=== PATIENT | male | born 1960 | race Caucasian/White ===

== ENCOUNTER 2017-07-12 09:49 | Inpatient (IN) | payer MEDICAID ==
[2017-07-12 12:47] LABS: ADD MAN DIFF? NO
[2017-07-12 12:50] LABS: BASOPHILS % 0.4 % (0.0-2.0); EOSINOPHILS # 0.2 10^3/ul (0.0-0.5); EOSINOPHILS % 3.2 % (0.0-7.0); HEMATOCRIT 35.7 % (42.0-52.0); HEMOGLOBIN 12.2 g/dl (14.0-18.0); LYMPHOCYTES # 1.8 10^3/ul (0.8-2.9); LYMPHOCYTES % 24.7 % (15.0-51.0); MEAN CORPUSCULAR HEMOGLOBIN 30.2 pg (29.0-33.0); MEAN CORPUSCULAR HGB CONC 34.2 g/dl (32.0-37.0); MEAN CORPUSCULAR VOLUME 88.4 fl (82.0-101.0); MEAN PLATELET VOLUME 10.5 fl (7.4-10.4); MONOCYTE # 0.4 10^3/ul (0.3-0.9); MONOCYTES % 6.2 % (0.0-11.0); NEUTROPHIL # 4.6 10^3/ul (1.6-7.5); NEUTROPHILS % 65.2 % (39.0-77.0); PLATELET COUNT 210 10^3/UL (140-415); RED BLOOD COUNT 4.04 10^6/ul (4.70-6.10); RED CELL DISTRIBUTION WIDTH 13.9 % (11.5-14.5)
[2017-07-12 12:50] LABS: WHITE BLOOD COUNT 7.1 10^3/ul (4.8-10.8)
[2017-07-12 13:10] LABS: ADD UMIC YES; UR ASCORBIC ACID NEGATIVE (NEGATIVE); UR BILIRUBIN (Dip) NEGATIVE (NEGATIVE); UR BLOOD (Dip) NEGATIVE (NEGATIVE); UR CLARITY CLEAR (CLEAR); UR COLOR YELLOW (YELLOW); UR GLUCOSE (Dip) NEGATIVE (NEGATIVE); UR KETONES (Dip) NEGATIVE (NEGATIVE); UR LEUKOCYTE ESTERASE (Dip) NEGATIVE Leu/ul (NEGATIVE); UR NITRITE (Dip) NEGATIVE (NEGATIVE); UR RBC 1 /HPF (0-5); UR SPECIFIC GRAVITY (Dip) 1.014 (1.003-1.030); UR TOTAL PROTEIN (Dip) 1+ mg/dl (NEGATIVE); UR UROBILINOGEN (Dip) NEGATIVE (NEGATIVE); UR WBC 1 /HPF (0-5)
[2017-07-12] MEDS: SOD CHLORIDE 0.9% 1,000 ML IV ×2 (13:11→16:19)
[2017-07-12 13:16] LABS: ALANINE AMINOTRANSFERASE 23 IU/L (13-69); ALBUMIN 4.6 g/dl (3.3-4.9); ALBUMIN/GLOBULIN RATIO 1.48; ALKALINE PHOSPHATASE 67 IU/L (42-121); AMYLASE 74 U/L (11-123); ANION GAP 19 (8-16); ASPARTATE AMINO TRANSFERASE 18 IU/L (15-46); BILIRUBIN,INDIRECT 0.4 mg/dl (0-1.1); BILIRUBIN,TOTAL 0.4 mg/dl (0.2-1.3); BLOOD UREA NITROGEN 25 mg/dl (7-20); CALCIUM 9.5 mg/dl (8.4-10.2); CARBON DIOXIDE 26 mmol/L (21-31); CHLORIDE 104 mmol/L (97-110); CREATININE 1.82 mg/dl (0.61-1.24); GLUCOSE 152 mg/dl (70-220); LIPASE 109 U/L (23-300); POTASSIUM 4.2 mmol/L (3.5-5.1); SODIUM 145 mmol/L (135-144); TOTAL PROTEIN 7.7 g/dl (6.1-8.1)
[2017-07-12 13:22] LABS: INR 1.01; PARTIAL THROMBOPLASTIN TIME 28.8 Sec (25.0-35.0); PROTIME 13.4 Sec (11.9-14.9)
[2017-07-12 13:33] LABS: TROPONIN-I < 0.012 ng/ml (0.00-0.12)
[2017-07-12] MEDS ORDERED: ONDANSETRON 4 MG INJ IV ×2 (18:00→18:30)
[2017-07-12] MEDS ORDERED: ACETAMINOPHEN 325 MG TAB PO ×2 (18:00→18:30)
[2017-07-12] MEDS: ASPIRIN (EC) 81 MG TAB PO (18:13)
[2017-07-12] MEDS ORDERED: DEXTROSE 50% 50 ML SYRINGE IV ×2 (18:30)
[2017-07-12] MEDS ORDERED: DOCUSATE SODIUM 100 MG CAP PO (18:30)
[2017-07-12] MEDS ORDERED: ZOLPIDEM 5 MG TAB PO (18:30)
[2017-07-12] MEDS ORDERED: GLUCOSE GEL 15 GRAM TUBE PO ×2 (18:30)
[2017-07-12] MEDS ORDERED: SILDENAFIL 25 MG TAB PO (18:30)
[2017-07-12] MEDS ORDERED: GLUCAGON 1 MG INJ IM (18:30)
[2017-07-12] MEDS ORDERED: NACL 0.9% 3 ML SYG IV (18:30)
[2017-07-12] MEDS ORDERED: morphine 2 MG INJ IV (18:30)
[2017-07-12] MEDS ORDERED: GLUCOSE GEL 15 GRAM TUBE BUCCAL (18:30)
[2017-07-12] MEDS: INSULIN ASPART [NOVOLOG] 3 ML PEN SC (20:46)
[2017-07-13] MEDS: ACCU-CHEK XX (02:00)
[2017-07-13 06:33] LABS: ADD MAN DIFF? NO
[2017-07-13 06:47] LABS: WHITE BLOOD COUNT 6.4 10^3/ul (4.8-10.8)
[2017-07-13 06:47] LABS: BASOPHIL # 0.1 10^3/ul (0.0-0.1); BASOPHILS % 0.9 % (0.0-2.0); EOSINOPHILS # 0.3 10^3/ul (0.0-0.5); HEMATOCRIT 32.3 % (42.0-52.0); LYMPHOCYTES # 1.6 10^3/ul (0.8-2.9); LYMPHOCYTES % 24.3 % (15.0-51.0); MEAN CORPUSCULAR HEMOGLOBIN 30.1 pg (29.0-33.0); MEAN CORPUSCULAR HGB CONC 34.1 g/dl (32.0-37.0); MEAN CORPUSCULAR VOLUME 88.3 fl (82.0-101.0); MEAN PLATELET VOLUME 10.6 fl (7.4-10.4); MONOCYTE # 0.5 10^3/ul (0.3-0.9); MONOCYTES % 8.1 % (0.0-11.0); NEUTROPHILS % 62.4 % (39.0-77.0); PLATELET COUNT 185 10^3/UL (140-415); RED BLOOD COUNT 3.66 10^6/ul (4.70-6.10); RED CELL DISTRIBUTION WIDTH 13.8 % (11.5-14.5)
[2017-07-13 06:58] LABS: HEMOGLOBIN A1C 6.6 % (0-5.9)
[2017-07-13 07:10] LABS: ANION GAP 15 (8-16); BLOOD UREA NITROGEN 25 mg/dl (7-20); CALCIUM 8.8 mg/dl (8.4-10.2); CARBON DIOXIDE 26 mmol/L (21-31); CHLORIDE 106 mmol/L (97-110); CHOL/HDL RATIO 2.8 RATIO; CHOLESTEROL 115 mg/dl (100-200); CREATININE 1.84 mg/dl (0.61-1.24); GLUCOSE 112 mg/dl (70-220); HDL CHOLESTEROL 40 mg/dl (28-71); LDL CHOLESTEROL,CALCULATED 51 mg/dl; MAGNESIUM 1.9 mg/dl (1.7-2.5); PHOSPHORUS 4.7 mg/dl (2.5-4.9); SODIUM 143 mmol/L (135-144); TRIGLYCERIDES 122 mg/dl (0-149)
[2017-07-13] MEDS: INSULIN ASPART [NOVOLOG] 3 ML PEN SC ×4 (07:35→20:58)
[2017-07-13] MEDS: SOD CHLORIDE 0.9% 1,000 ML IV ×3 (08:03→22:38)
[2017-07-13] MEDS: INFLUENZA VIRUS VACCINE 0.5 ML SYG IM* (19:36)
[2017-07-14] MEDS: ACCU-CHEK XX (01:48)
[2017-07-14 06:24] LABS: ANION GAP 16 (8-16); BLOOD UREA NITROGEN 25 mg/dl (7-20); CALCIUM 8.9 mg/dl (8.4-10.2); CARBON DIOXIDE 26 mmol/L (21-31); CHLORIDE 107 mmol/L (97-110); CREATININE 1.78 mg/dl (0.61-1.24); GLUCOSE 122 mg/dl (70-220); POTASSIUM 4.1 mmol/L (3.5-5.1); SODIUM 145 mmol/L (135-144)
[2017-07-14] MEDS: INSULIN ASPART [NOVOLOG] 3 ML PEN SC ×4 (07:46→21:00)
[2017-07-14] MEDS: GLIMEPIRIDE 2 MG TAB PO (07:46)
[2017-07-14] MEDS: METOPROLOL 25 MG TAB PO (21:27)
[2017-07-15] MEDS: ACCU-CHEK XX (02:00)
[2017-07-15 07:09] LABS: ANION GAP 15 (8-16); BLOOD UREA NITROGEN 31 mg/dl (7-20); CALCIUM 9.1 mg/dl (8.4-10.2); CARBON DIOXIDE 25 mmol/L (21-31); CHLORIDE 107 mmol/L (97-110); GLUCOSE 111 mg/dl (70-220); POTASSIUM 4.3 mmol/L (3.5-5.1); SODIUM 143 mmol/L (135-144)
[2017-07-15] MEDS: INSULIN ASPART [NOVOLOG] 3 ML PEN SC ×4 (07:55→21:00)
[2017-07-15] MEDS: METOPROLOL 25 MG TAB PO ×2 (08:12→21:17)
[2017-07-15] MEDS: GLIMEPIRIDE 2 MG TAB PO (08:12)
[2017-07-15] MEDS: AMLODIPINE 5 MG TAB PO (20:00)
[2017-07-15] MEDS: HYDROCODONE/APAP (5/325) TAB PO (21:21)
[2017-07-16] MEDS: ACCU-CHEK XX (02:00)
[2017-07-16] MEDS: INSULIN ASPART [NOVOLOG] 3 ML PEN SC ×4 (07:55→21:00)
[2017-07-16] MEDS: GLIMEPIRIDE 2 MG TAB PO (08:12)
[2017-07-16] MEDS: AMLODIPINE 5 MG TAB PO (08:12)
[2017-07-16] MEDS: METOPROLOL 25 MG TAB PO ×2 (08:13→21:06)
[2017-07-16 08:59] LABS: ANION GAP 18 (8-16); BLOOD UREA NITROGEN 32 mg/dl (7-20); CALCIUM 9.3 mg/dl (8.4-10.2); CARBON DIOXIDE 25 mmol/L (21-31); CHLORIDE 102 mmol/L (97-110); CREATININE 1.78 mg/dl (0.61-1.24); GLUCOSE 112 mg/dl (70-220); SODIUM 141 mmol/L (135-144)
[2017-07-17] MEDS: ACCU-CHEK XX (01:50)
[2017-07-17] MEDS: GLIMEPIRIDE 2 MG TAB PO (07:25)
[2017-07-17 07:39] LABS: ADD MAN DIFF? NO
[2017-07-17 07:47] LABS: WHITE BLOOD COUNT 6.4 10^3/ul (4.8-10.8)
[2017-07-17 07:47] LABS: BASOPHIL # 0.1 10^3/ul (0.0-0.1); BASOPHILS % 0.8 % (0.0-2.0); EOSINOPHILS # 0.2 10^3/ul (0.0-0.5); EOSINOPHILS % 3.3 % (0.0-7.0); HEMATOCRIT 33.8 % (42.0-52.0); HEMOGLOBIN 11.7 g/dl (14.0-18.0); LYMPHOCYTES # 1.5 10^3/ul (0.8-2.9); LYMPHOCYTES % 23.7 % (15.0-51.0); MEAN CORPUSCULAR HEMOGLOBIN 29.8 pg (29.0-33.0); MEAN CORPUSCULAR HGB CONC 34.6 g/dl (32.0-37.0); MEAN CORPUSCULAR VOLUME 86.2 fl (82.0-101.0); MEAN PLATELET VOLUME 10.7 fl (7.4-10.4); MONOCYTE # 0.5 10^3/ul (0.3-0.9); MONOCYTES % 8.3 % (0.0-11.0); NEUTROPHIL # 4.1 10^3/ul (1.6-7.5); NEUTROPHILS % 63.6 % (39.0-77.0); PLATELET COUNT 198 10^3/UL (140-415); RED BLOOD COUNT 3.92 10^6/ul (4.70-6.10); RED CELL DISTRIBUTION WIDTH 13.8 % (11.5-14.5)
[2017-07-17] MEDS: INSULIN ASPART [NOVOLOG] 3 ML PEN SC ×4 (07:55→21:00)
[2017-07-17 08:26] LABS: ANION GAP 18 (8-16); BLOOD UREA NITROGEN 34 mg/dl (7-20); CALCIUM 9.4 mg/dl (8.4-10.2); CARBON DIOXIDE 25 mmol/L (21-31); CHLORIDE 105 mmol/L (97-110); CREATININE 1.99 mg/dl (0.61-1.24); GLUCOSE 92 mg/dl (70-220); PHOSPHORUS 4.9 mg/dl (2.5-4.9); POTASSIUM 4.3 mmol/L (3.5-5.1); SODIUM 144 mmol/L (135-144)
[2017-07-17] MEDS: METOPROLOL 25 MG TAB PO ×2 (08:30→21:23)
[2017-07-17] MEDS: AMLODIPINE 5 MG TAB PO (08:30)
[2017-07-17] MEDS: LIDOCAINE 1% (MDV) 10 ML INJ (10:50)
[2017-07-17] MEDS: MIDAZOLAM 1 MG/ML 2 ML INJ (10:58)
[2017-07-17] MEDS: FENTAnyl 50 MCG/ML VIAL (10:59)
[2017-07-17] MEDS: SOD CHLORIDE 0.9% 500 ML (11:04)
[2017-07-17] MEDS: HYDROCODONE/APAP (5/325) TAB PO (12:16)
[2017-07-18] MEDS: ACCU-CHEK XX (02:00)
[2017-07-18 06:44] LABS: ADD MAN DIFF? NO
[2017-07-18 06:48] LABS: BASOPHILS % 0.6 % (0.0-2.0); EOSINOPHILS # 0.2 10^3/ul (0.0-0.5); EOSINOPHILS % 3.5 % (0.0-7.0); HEMATOCRIT 33.5 % (42.0-52.0); HEMOGLOBIN 11.7 g/dl (14.0-18.0); LYMPHOCYTES # 1.6 10^3/ul (0.8-2.9); MEAN CORPUSCULAR HEMOGLOBIN 29.8 pg (29.0-33.0); MEAN CORPUSCULAR HGB CONC 34.9 g/dl (32.0-37.0); MEAN CORPUSCULAR VOLUME 85.5 fl (82.0-101.0); MEAN PLATELET VOLUME 10.4 fl (7.4-10.4); MONOCYTE # 0.6 10^3/ul (0.3-0.9); NEUTROPHIL # 4.1 10^3/ul (1.6-7.5); NEUTROPHILS % 61.7 % (39.0-77.0); PLATELET COUNT 187 10^3/UL (140-415); RED BLOOD COUNT 3.92 10^6/ul (4.70-6.10); RED CELL DISTRIBUTION WIDTH 13.9 % (11.5-14.5)
[2017-07-18 06:48] LABS: WHITE BLOOD COUNT 6.6 10^3/ul (4.8-10.8)
[2017-07-18 07:21] LABS: ANION GAP 16 (8-16); BLOOD UREA NITROGEN 38 mg/dl (7-20); CALCIUM 9.3 mg/dl (8.4-10.2); CARBON DIOXIDE 26 mmol/L (21-31); CHLORIDE 103 mmol/L (97-110); GLUCOSE 125 mg/dl (70-220); MAGNESIUM 1.9 mg/dl (1.7-2.5); POTASSIUM 4.4 mmol/L (3.5-5.1); SODIUM 141 mmol/L (135-144)
[2017-07-18 07:26] LABS: ADD UMIC NO; UR ASCORBIC ACID NEGATIVE (NEGATIVE); UR BILIRUBIN (Dip) NEGATIVE (NEGATIVE); UR BLOOD (Dip) NEGATIVE (NEGATIVE); UR CLARITY CLEAR (CLEAR); UR COLOR YELLOW (YELLOW); UR GLUCOSE (Dip) 2+ mg/dL (NEGATIVE); UR KETONES (Dip) NEGATIVE (NEGATIVE); UR LEUKOCYTE ESTERASE (Dip) NEGATIVE Leu/ul (NEGATIVE); UR NITRITE (Dip) NEGATIVE (NEGATIVE); UR SPECIFIC GRAVITY (Dip) 1.015 (1.003-1.030); UR TOTAL PROTEIN (Dip) NEGATIVE (NEGATIVE); UR UROBILINOGEN (Dip) NEGATIVE (NEGATIVE)
[2017-07-18 07:29] LABS: CREATININE,URINE RANDOM 66.39 mg/dl (20-370)
[2017-07-18 07:29] LABS: SODIUM,URINE RANDOM 101 mmol/L (30-90)
[2017-07-18] MEDS: INSULIN ASPART [NOVOLOG] 3 ML PEN SC ×4 (07:55→20:38)
[2017-07-18] MEDS: GLIMEPIRIDE 2 MG TAB PO (08:32)
[2017-07-18] MEDS: AMLODIPINE 5 MG TAB PO (08:33)
[2017-07-18] MEDS: METOPROLOL 25 MG TAB PO ×2 (08:33→20:35)
[2017-07-18] MEDS: HYDROCODONE/APAP (5/325) TAB PO (13:28)
[2017-07-18 16:05] LABS: IMMUNOGLOBULIN A 220 mg/dl (70-400); IMMUNOGLOBULIN G 1565 mg/dl (700-1600); IMMUNOGLOBULIN M 47 mg/dl (40-230)
[2017-07-18] MEDS: INSULIN GLARGINE [LANtus] 3 ML PEN SC (20:37)
[2017-07-19] MEDS: ACCU-CHEK XX ×2 (01:40)
[2017-07-19 03:17] LABS: PROTEIN, TOTAL 7.9 g/dL (6.1-8.1)
[2017-07-19 06:11] LABS: ANION GAP 18 (8-16); BLOOD UREA NITROGEN 40 mg/dl (7-20); CALCIUM 9.4 mg/dl (8.4-10.2); CARBON DIOXIDE 26 mmol/L (21-31); CHLORIDE 103 mmol/L (97-110); CREATININE 2.02 mg/dl (0.61-1.24); GLUCOSE 126 mg/dl (70-220); POTASSIUM 3.7 mmol/L (3.5-5.1); SODIUM 143 mmol/L (135-144)
[2017-07-19] MEDS: INSULIN ASPART [NOVOLOG] 3 ML PEN SC ×4 (08:25→20:19)
[2017-07-19] MEDS: AMLODIPINE 5 MG TAB PO (09:50)
[2017-07-19] MEDS: METOPROLOL 25 MG TAB PO ×2 (09:51→20:20)
[2017-07-19] MEDS: FENTAnyl 50 MCG/ML VIAL (13:47)
[2017-07-19] MEDS: DIPHENHYDRAMINE 50 MG INJ (13:52)
[2017-07-19] MEDS: LIDOCAINE 1% (MDV) 10 ML INJ (13:58)
[2017-07-19 14:26] LABS: IMMUNOGLOBULIN E 152 kU/L (<OR=114)
[2017-07-19 15:12] LABS: CREATININE, RANDOM URINE 80 mg/dL (20-370); MICROALBUMIN 2.2 mg/dL; MICROALBUMIN/CREATININE RATIO 28 (<30)
[2017-07-19 17:26] LABS: ABNORMAL PROTEIN BAND 1 0.4 g/dL (NONE DETECTED); ALBUMIN 4.5 g/dL (3.8-4.8); ALPHA-1-GLOBULINS 0.3 g/dL (0.2-0.3); ALPHA-2-GLOBULINS 0.7 g/dL (0.5-0.9); BETA 2 GLOBULINS 0.4 g/dL (0.2-0.5); BETA GLOBULINS 0.5 g/dL (0.4-0.6); GAMMA GLOBULINS 1.5 g/dL (0.8-1.7)
[2017-07-19] MEDS: INSULIN GLARGINE [LANtus] 3 ML PEN SC (20:18)
[2017-07-20] MEDS: ACCU-CHEK XX ×2 (02:57)
[2017-07-20] MEDS: INSULIN ASPART [NOVOLOG] 3 ML PEN SC ×2 (07:50→13:16)
[2017-07-20] MEDS: AMLODIPINE 5 MG TAB PO (08:40)
[2017-07-20] MEDS: METOPROLOL 25 MG TAB PO (08:41)
[2017-07-20] MEDS: HYDROCODONE/APAP (5/325) TAB PO (11:42)
[2017-07-21 19:06] LABS: IMMUNOGLOBULIN D 10 mg/L (<179)
== END 2017-07-20 17:09 | disposition home or self-care (01) | DRG 841 ==
LOC: TEL 07-16 19:50 → MS1 07-18 18:48 → E/R 09:49 → MS3 21:33 → TEL 07-14 18:43 → MS3 17:42
PROVIDERS: Internal Medicine
PROC: 0WBC3ZX Excision of Mediastinum, Percutaneous Approach, Diagnostic (ICD-10-PCS; principal; 2017-07-17)
PROC: 07DR3ZX Extraction of Iliac Bone Marrow, Percutaneous Approach, Diagnostic (ICD-10-PCS; 2017-07-19)
DX: C90.00 Multiple myeloma not having achieved remission (principal); N17.9 Acute kidney failure, unspecified; E11.9 Type 2 diabetes mellitus without complications; N18.3 Chronic kidney disease, stage 3 (moderate); I12.9 Hypertensive chronic kidney disease with stage 1 through stage 4 chronic kidney disease, or unspecified chronic kidney disease; E11.22 Type 2 diabetes mellitus with diabetic chronic kidney disease; D63.1 Anemia in chronic kidney disease
CPT/HCPCS: 71045; 71250; 72157; 76775; 77012; 80048; 80053; 80061; 81001; 81003; 82043; 82150; 82784; 82785; 82962; 83036; 83690; 83735; 84100; 84155; 84165; 84300; 84443; 84484; 85025; 85610; 85730; 86320; 88305; 88311; 88313; 90686; 93005; 93306; 99285-25